=== PATIENT | female | born 1990 | race African-American/Black ===

== ENCOUNTER 2019-02-23 14:08 | Emergency (ER) | payer OTHER, MEDICAID ==
[~2019-02-23] VITALS: Ht 154.9 cm; Wt 77.1 kg
[2019-02-23] MEDS ORDERED: VISTARIL50 MG PO (14:20)
[2019-02-23] MEDS ORDERED: TRAZODONE HCL50 MG PO (14:20)
[2019-02-23] MEDS ORDERED: VALACYCLOVIR1000 MG PO (14:21)
[2019-02-23] MEDS ORDERED: INVEGA6 MG PO (14:21)
[2019-02-23 15:05] LABS: URINE BLOOD TRACE (Negative); URINE CLARITY CLEAR; URINE COLOR YELLOW; URINE GLUCOSE-RANDOM NEGATIVE (Negative); URINE KETONES 1+ (Negative); URINE LEUKOCYTES-REFLEX NEGATIVE (Negative); URINE NITRITE-REFLEX NEGATIVE (Negative); URINE PROTEIN 3+ (Negative); URINE SPECIFIC GRAVITY >= 1.030 (1.005-1.030)
[2019-02-23 15:13] LABS: URINE BILIRUBIN 2+ (Negative)
[2019-02-23 15:15] LABS: ICTOTEST (BILI CONFIRMATORY) Negative (Negative)
[2019-02-23 15:28] LABS: CASTS None Seen /LPF (None Seen); CRYSTALS None Seen /LPF (None Seen); SQUAMOUS 0-3 Few /LPF (0-3); URINE RBC 0-2 Rare /HPF (0-2); URINE WBC-REFLEX 6-15 Few /HPF (0-5)
[2019-02-23 15:37] LABS: INFLUENZA A ANTIGEN Negative (Negative)
[2019-02-23 16:07] LABS: RBC 5.23 mil/uL (4.20-5.00); WBC 3.3 thou/uL (4.0-11.0)
[2019-02-23 16:09] LABS: HEMATOCRIT 47.1 % (37.0-47.0); HEMOGLOBIN 16.1 gm/dL (12.0-15.0); MCH 30.8 pg (26.0-34.0); MCHC 34.2 g/dL (28.0-37.0); MCV 90.1 fL (80.0-100.0); MPV 7.8 fl. (7.2-11.1); NUCLEATED RBCS 0 /100WBC; PLATELET COUNT* 257 thou/uL (150-400); RDW-CV 13.3 % (10.5-14.5)
[2019-02-23 16:10] LABS: CALCIUM 9.4 mg/dL (8.5-10.1); POTASSIUM 3.7 mmol/L (3.5-5.1)
[2019-02-23 16:15] LABS: TOTAL BILIRUBIN 1.5 mg/dL (<0.1-1.0); TOTAL PROTEIN 8.9 g/dL (6.4-8.2)
[2019-02-23 16:27] LABS: ABSOLUTE LYMPHOCYTES 0.8 thou/uL (0.8-5.3); ABSOLUTE MONOCYTES 0.7 thou/uL (0.0-1.2); ABSOLUTE NEUTROPHILS 1.9 thou/uL (1.6-8.1); PLATELET ESTIMATE ADEQUATE
[2019-02-23] MEDS ORDERED: TAMIFLU75 MG PO (16:36)
[2019-02-23] MEDS ORDERED: ZOFRAN ODT4 MG PO (16:36)
[2019-02-23 16:56] VITALS: BP 135/80
== END 2019-02-23 16:58 | disposition home or self-care (01) ==
LOC: M.ERS 14:08
PROVIDERS: Nurse Practitioner Family; Personal Emergency Response Attendant
DX: J10.1 Influenza due to other identified influenza virus with other respiratory manifestations (principal); R11.2 Nausea with vomiting, unspecified; F17.210 Nicotine dependence, cigarettes, uncomplicated; Z88.1 Allergy status to other antibiotic agents; Z88.8 Allergy status to other drugs, medicaments and biological substances; Z90.89 Acquired absence of other organs

== ENCOUNTER 2019-02-27 12:05 | Emergency (ER) | payer OTHER, MEDICAID ==
[~2019-02-27] VITALS: Ht 154.9 cm; Wt 77.1 kg
[~2019-02-27 12:05] MED LIST: INVEGA6 MG PO; TAMIFLU75 MG PO; TRAZODONE HCL50 MG PO; VALACYCLOVIR1000 MG PO; VISTARIL50 MG PO; ZOFRAN ODT4 MG PO
[2019-02-27 12:49] LABS: INFLUENZA A ANTIGEN Negative (Negative); INFLUENZA B ANTIGEN Negative (Negative)
[2019-02-27 13:55] VITALS: BP 122/72
== END 2019-02-27 13:56 | disposition home or self-care (01) ==
LOC: M.ERS 12:05
PROVIDERS: Nurse Practitioner Family
DX: B34.9 Viral infection, unspecified (principal); F17.200 Nicotine dependence, unspecified, uncomplicated; Z88.1 Allergy status to other antibiotic agents; Z88.8 Allergy status to other drugs, medicaments and biological substances